=== PATIENT | male | born 1935 | race Asian ===

== ENCOUNTER 2020-07-29 19:34 | Inpatient (IN) | payer MEDICARE, BC ==
[~2020-07-29] VITALS: Ht 165.1 cm; Wt 72.8 kg
[~2020-07-29 19:34] MED LIST: ALFU10TA23 PO; AMLO1TAB15 PO; ASPI81TA50 PO; ATOR20TA PO; MULT-658 PO; SITA1TAB11 PO
[2020-07-29] MEDS ORDERED: 0.9 % SODIUM CHLORIDE 10 ML DISP.SYRIN. IV PRN (20:00)
[2020-07-29] MEDS ORDERED: NORMAL SALINE IV SCH (20:00)
--- NOTE | 2020-07-29 20:20 | RAD ---
AP chest. HISTORY: Altered mental status, fever AP view was taken of the chest. Heart is normal in size. There is a left lower lobe infiltrate sugges ting an acute pneumonia. There is no definite effusion. IMPRESSION: 1. Left lower lobe infiltrate. Electronically signed by: Adalid Barriga MD (07/29/2020 8:18 PM) [facility]
--- NOTE | 2020-07-29 20:23 | RAD ---
CT brain without contrast. HISTORY: Altered mental status, fever CT scan of brain was done without contrast. Sinuses are clear. There is no skull fracture. There is n o intracranial hemorrhage or subdural hematoma. There is no mass or shift of the midline. Ventricles are normal in size. There is mild decreased density in the periventricular white matter from microvas cular changes. An acute CVA is not identified. IMPRESSION: 1. No intracranial hemorrhage or acute finding noted intracranially. PQRS Compliance Statement: One or more of the following individualized dose reduction techniques were utilized for this examinat ion: 1. Automated exposure control 2. Adjustment of the mA and/or kV according to patient size 3. Use of iterative reconstruction technique Electronically signed by: Adalid Barriga MD (07/29/2020 8:20 PM) [facility]
[2020-07-29] MEDS ORDERED: cefTRIAXone SODIUM 1 GM VIAL ONE (20:24)
[2020-07-29] MEDS ORDERED: IV NORMAL SALINE 50ML 50 ML ONE (20:24)
--- NOTE | 2020-07-29 20:33 | EKG ---
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
[2020-07-29 21:00] LABS: CALCIUM 8.9 mg/dL (8.5-10.1); CREATININE 1.3 mg/dL (0.7-1.3); GFR 52.7; POTASSIUM 4.1 mmol/L (3.5-5.1)
[2020-07-29 21:10] LABS: BASO % 0 % (0-3); EOS # 0.1 x10^3/uL (0.0-0.7); EOS % 1 % (0-3); HEMATOCRIT 37.2 % (39.0-53.0); HEMOGLOBIN 12.7 g/dL (13.0-17.5); LYMPH # 0.6 x10^3/uL (1.0-4.8); LYMPH % 7 % (24-48); MEAN CORPUSCULAR HEMOGLOBIN 32 pg (25-35); MEAN CORPUSCULAR HGB CONC 34 g/dL (31-37); MEAN CORPUSCULAR VOLUME 95 fL (79-100); MONO # 0.4 x10^3/uL (0.0-1.1); MONO % 5 % (0-9); NEUT # 6.8 x10^3uL (1.8-7.7); NEUT % 87 % (31-73); PLATELET COUNT 152 x10^3/uL (140-400); RED CELL DISTRIBUTION WIDTH 12.9 % (11.5-14.5); WHITE BLOOD COUNT 7.9 x10^3/uL (4.0-11.0)
--- NOTE | 2020-07-29 21:44 | PHYS DOC ---
Past History Past Medical History: Diabetes, GI Bleed, High Cholesterol, Hypertension, Prostatitis Past Surgical History: Other Alcohol Use: Occasionally Drug Use: None Adult General Chief Complaint Chief Complaint: ALTERED MENTAL STATUS HPI HPI Patient is a 84-year-old male who presents via POV for confusion. 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 She reports patient has had approximately 12 hours of cough with further development of body aches and appears delirious per . Patient has had no known sick contacts, no recent travel, no changes in home medication. Patient did have fever of 104 this morning that was treated appropriately with Tylenol with full resolution. concerned that patient is possibly septic and this happened to him in the past with a UTI prompting her to come in with him for evaluation. Patient has past medical history of A. fib, type 2 diabetes, hypertension and hypercholesterol. He uses alcohol occasionally but does not smoke or do other drugs. Patient had second Covid vaccination last month, no o ther concerning ingestions, exposures. Admits fever, chills, and dry nonproductive cough. No vision changes, chest pain, shortness of breath, abdominal pain, dysuria, neurologic deficits Review of Systems Review of Systems Fourteen body systems of review of systems have been reviewed. See HPI for pertinent positives and negative responses, other umana all other systems are negative, non-pertinent or non-contributory Current Medications Current Medications Current Medications Medications (Trade) Dose Ordered Sig/Alonzo Start Time Stop Time Status Last Admin Dose Admin Ceftriaxone Sodium 1 gm/ Sodium Chloride 50 ml @ 100 mls/hr 1X ONCE 07/29/20 20:00 07/29/20 20:29 DC 07/29/20 20:00 100 MLS/HR Ceftriaxone Sodium (Rocephin) 1 gm STK-MED ONCE 07/29/20 20:24 07/29/20 20:24 DC Sodium Chloride 50 ml @ As Directed STK-MED ONCE 07/29/20 20:24 07/29/20 20:24 DC Sodium Chloride (Normal Saline Flush) 10 ml QSHIFT PRN 07/29/20 20:00 Allergies Allergies Allergies Coded Allergies Type Severity Reaction Last Updated Verified No Known Drug Allergies 04/05/15 No Physical Exam Physical Exam Constitutional: Well developed, well nourished, no acute distress, non-toxic ap pearance. HENT: Normocephalic, atraumatic, bilateral external ears normal, oropharynx moist, no oral exudates, nose normal. Eyes: PERRLA, EOMI, conjunctiva normal, no discharge. Neck: Normal range of motion, no tenderness, supple, no stridor. Cardiovascular: Heart rate regular, sinus rhythm, no murmurs rubs or gallops Lungs & Thorax: Crackles present in left lower lobe without obvious respiratory distress, increased work of breathing or accessory muscle use Abdomen: Bowel sounds normal, soft, no tenderness, no masses, no pulsatile masses. Nonsurgical abdomen, no peritoneal signs Skin: Warm, dry, no erythema, no rash. Back: No tenderness, no CVA tenderness. Extremities: No tenderness, no cyanosis, no clubbing, ROM intact, no edema. Neurologic: Alert and oriented to person and place only, grossly normal motor & sensory function, no focal deficits noted. Psychologic: Affect normal, judgement normal, mood normal. Current Patient Data Vital Signs Vital Signs Date Time Temp Pulse Resp B/P (MAP) Pulse Ox O2 Delivery O2 Flow Rate FiO2 07/29/20 19:41 102.0 100 16 145/75 (98) 92 Room Air Lab Results Laboratory Tests Test 07/29/20 20:17 White Blood Count 7.9 x10^3/uL (4.0-11.0) Red Blood Count 3.90 x10^6/uL (4.30-5.70) L Hemoglobin 12.7 g/dL (13.0-17.5) L Hematocrit 37.2 % (39.0-53.0) L Mean Corpuscular Volume 95 fL (79-100) Mean Corpuscular Hemoglobin 32 pg (25-35) Mean Corpuscular Hemoglobin Concent 34 g/dL (31-37) Red Cell Distribution Width 12.9 % (11.5-14.5) Platelet Count 152 x10^3/uL (140-400) Neutrophils (%) (Auto) 87 % (31-73) H Lymphocytes (%) (Auto) 7 % (24-48) L Monocytes (%) (Auto) 5 % (0-9) Eosinophils (%) (Auto) 1 % (0-3) Basophils (%) (Auto) 0 % (0-3) Neutrophils # (Auto) 6.8 x10^3uL (1.8-7.7) Lymphocytes # (Auto) 0.6 x10^3/uL (1.0-4.8) L Monocytes # (Auto) 0.4 x10^3/uL (0.0-1.1) Eosinophils # (Auto) 0.1 x10^3/uL (0.0-0.7) Basophils # (Auto) 0.0 x10^3/uL (0.0-0.2) Sodium Level 139 mmol/L (136-145) Potassium Level 4.1 mmol/L (3.5-5.1) Chloride Level 103 mmol/L (98-107) Carbon Dioxide Level 23 mmol/L (21-32) Anion Gap 13 (6-14) Blood Urea Nitrogen 13 mg/dL (8-26) Creatinine 1.3 mg/dL (0.7-1.3) Estimated GFR (Cockcroft-Gault) 52.7 Glucose Level 189 mg/dL (70-99) H Lactic Acid Level 2.7 mmol/L (0.4-2.0) H Calcium Level 8.9 mg/dL (8.5-10.1) Troponin I Quantitative 0.054 ng/mL (0-0.055) EKG EKG EKG ordered and interpreted by myself at 2030 hrs. as sinus rhythm at 95 bpm, prolonged NM at 204 otherwise unremarkable intervals, no axis deviation, no acute ischemic findings, no STEMI Radiology/Procedures Radiology/Procedures PROCEDURE: PORTABLE CHEST 1V AP chest. HISTORY: Altered mental status, fever AP view was taken of the chest. Heart is normal in size. There is a left lower lobe infiltrate suggesting an acute pneumonia. There is no definite effusion. IMPRESSION: 1. Left lower lobe infiltrate. Electronically signed by: Adalid Barriga MD (07/29/2020 8:18 PM) [facility] ////////////////////////// PROCEDURE: CT HEAD WO CONTRAST CT brain without contrast. HISTORY: Altered mental status, fever CT scan of brain was done without contrast. Sinuses are clear. There is no skull fracture. There is no intracranial hemorrhage or subdural hematoma. There is no mass or shift of the midline. Ventricles are normal in size. There is mild decreased density in the periventricular white matter from microvascular changes. An acute CVA is not identified. IMPRESSION: 1. No intracranial hemorrhage or acute finding noted intracranially. Heart Score C/O Chest Pain: No HEART Score for Chest Pain: HEART Score for Chest Pain Response (Comments) Value History Slighlty/Non-Suspicious 0 ECG Normal 0 Age > 65 2 Risk Factors >3 Risk Factors or Hx CAD 2 Troponin < Normal Limit 0 Total 4 Risk Factors: Risk Factors: DM, Current or recent (<one month) smoker, HTN, HLP, family history of CAD, obesity. Risk Scores: Risk Factors: DM, Current or recent (<one month) smoker, HTN, HLP, family history of CAD, obesity. Course & Med Decision Making Course & Med Decision Making Febrile and tachycardic patient resenting with history concerning for respiratory pathology and delirium. Physical exam grossly nonconcerning for any emergent/surgical issues. Comprehensive work-up concerning for left lower lobe pneumonia Curb 65 2 indicating 6.8% 30-day mortality. Given recent delirious spells, I recommended admission to hospital. Patient initially did not want this but after discussing case with who agreed need for admission, patient was agreeable Sepsis quality measures met. Patient started on Rocephin and azithromycin for community-acquired pneumonia coverage. Hospitalist, Dr. Sargent contacted and case discussed, he agreed need for admission for continued inpatient medical management Critical Care Time This patient required critical care. Due to the fact that the patient required a significant amount of one on one physician - patient contact time, ordering and review of studies, arranging urgent treatment with development of a management plan, evaluation of patients response to treatment with frequent reassessments, and discussions with other providers this patient required 35 minutes of critica l care time. Critical care time was indicated due to the inherent instability and/or potential for instability in this patient. The critical care time that is allocated to this patient is above and beyond any time spent on any other billable procedures performed on this patient. Dragon Disclaimer Dragon Disclaimer This electronic medical record was generated, in whole or in part, using a voice recognition dictation system. Departure Departure: Impression: Primary Impression: LLL pneumonia Additional Impression: Sepsis Disposition: 09 ADMITTED INPT THIS HOSP Admitting Physician: Misti Sargent Condition: STABLE Referrals: RACHAEL TILLEY (PCP) Problem Qualifiers LEO GIBBS DO Jul 29, 2020 21:44
[2020-07-29] MEDS ORDERED: ACETAMINOPHEN 325 MG TABLET PO PRN (21:45)
[2020-07-29] MEDS ORDERED: AZITHROMYCIN 500 MG in IV NORMAL SALINE 250ML 250 ML IV ONE (22:00)
[2020-07-29] MEDS ORDERED: AZITHROMYCIN 500 MG VIAL. IV ONE (22:23)
[2020-07-29] MEDS ORDERED: IV NORMAL SALINE 250ML 250 ML ONE (22:23)
[2020-07-29 22:33] LABS: CLARITY,URINE CLEAR; COLOR,URINE YELLOW; GLUCOSE,URINE NEG (NEG)
[2020-07-29 22:34] LABS: BACTERIA,URINE 0 /HPF (0-FEW); BILIRUBIN,URINE NEG (NEG); NITRITE,URINE NEG (NEG); RBC,URINE 0 /HPF (0-2); UROBILINOGEN,URINE 0.2 mg/dL (0.2 mg/dL); WBC,URINE 0 /HPF (0-4)
[2020-07-29 23:01] VITALS: BP 128/62
[2020-07-30] MEDS ORDERED: ALFU10TA4 PO (00:55)
[2020-07-30] MEDS ORDERED: SITA1TBM4 PO (00:55)
[2020-07-30] MEDS ORDERED: OMEG-33 PO (00:55)
[2020-07-30] MEDS ORDERED: AMLO-309 PO (00:55)
[2020-07-30] MEDS ORDERED: ATOR40TA59 PO (00:55)
[2020-07-30] MEDS ORDERED: ASPI-889 PO (00:55)
[2020-07-30] MEDS ORDERED: METO25TA4 PO (00:55)
[2020-07-30] MEDS: IV NORMAL SALINE 1,000ML 1,000 ML IV SCH ×3 (01:32→21:00)
[2020-07-30 05:17] VITALS: BP 119/60
[2020-07-30 11:20] VITALS: BP 126/62
[2020-07-30] MEDS: LACTOBACILLUS RHAMNOSUS GG 1 CAPSULE. PO SCH ×2 (11:59→21:35)
[2020-07-30] MEDS: OMEGA-3 FATTY ACIDS/FISH OIL 1,000 MG CAPSULE. PO SCH (11:59)
[2020-07-30] MEDS: METOPROLOL TART IMMED RELEASE 25 MG TABLET. PO SCH ×2 (11:59→21:35)
[2020-07-30] MEDS: LOSARTAN 50 MG TABLET. PO SCH (12:00)
[2020-07-30] MEDS: ATORVASTATIN CALCIUM 20 MG TABLET PO SCH (12:00)
[2020-07-30] MEDS: LINAGLIPTIN 5 MG TABLET PO SCH (12:00)
[2020-07-30] MEDS: amLODIPine BESYLATE 5 MG TABLET PO SCH (12:01)
--- NOTE | 2020-07-30 12:44 | PN ---
DATE: 07/30/2020 SUBJECTIVE: The patient was admitted yesterday with fever, cough mostly dry, left side chest discomfort. He was diagnosed with pneumonia, was started on IV Rocephin and Zithromax. He did actually very well. When I saw him this morning, he was resting, almost flat in bed, in no apparent distress, continued to have some cough, which is mostly dry with scanty whitish sputum and some discomfort in the left side, did complain of some shortness of breath, but denied any orthopnea or paroxysmal nocturnal dyspnea. Denied any chills, rigors or fever. OBJECTIVE: GENERAL: When I examined him this morning, he looked well and was clearly in no apparent respiratory distress. No pallor, jaundice, cyanosis or thyromegaly. No jugular venous distention. No lower limb edema. VITAL SIGNS: His heart rate was 71, blood pressure was 119/60, temperature was 98.2, respiratory rate was 16, and oxygen saturation was 93% on room air. HEAD, EYES, EARS, NOSE AND THROAT: Showed normocephalic and atraumatic. NECK: Supple. HEART: Showed normal first and second heart sounds. No gallop or murmur. CHEST: Showed central trachea, equal bilateral expansion, air entry, vesicular breath sounds with crepitation mostly in the left side posteriorly. ABDOMEN: Distended, soft, nontender. NEUROLOGIC: He was grossly intact. His intake and output are incompletely recorded. His lactic acid is down to 2.1. His troponin is trending down. ASSESSMENT: 1. Community-acquired pneumonia. 2. Continue with IV Zithromax and Rocephin. I did reconcile all his medication. We will continue to monitor him closely and decide the further management accordingly. ADILENE MCLAUGHLIN MD DR: SPEEDY/clarke JOB#: [id number] / [id number]
--- NOTE | 2020-07-30 13:59 | HP ---
ADMIT DATE: 07/30/2020 HISTORY OF PRESENT ILLNESS: The patient is an 84-year-old [place] patient who was brought to the Emergency Room by privately owned vehicle for worsening confusion. 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 She reported the patient had approximately 12 hours of cough with further development of body aches and appears delirious ____ his . The patient has had no known sick contact, no recent travel, no change in home medication, did have fever up to 104 the morning of admission, was treated appropriately with Tylenol with full resolution. His concerned that the patient is possibly septic and this happens to him in the past with UTI, prompting her to come in with him for evaluation. He apparently is known to have multiple medical problems. He had had a second COVID vaccination last month. No other concerning ingestion exposures. The patient was admitted to fever, chills and dry nonproductive cough; however, he denied any chest pain or shortness of breath. He was extensively evaluated in the Emergency Room and his white cell count is actually normal. His chemistry was also unremarkable. His lactic acid was slightly high at 2.7 and his troponin was slightly elevated. His chest x-ray showed that there is left lower lobe infiltrate suggesting an acute pneumonia. There is no definite effusion. The patient was admitted with community-acquired pneumonia, was started on Rocephin and Zithromax and continued on his other medications. PAST MEDICAL HISTORY: Significant for hypertension, hyperlipidemia, type 2 diabetes mellitus, benign prostatic hypertrophy, atrial fibrillation and bleeding gastric ulcer. PAST SURGICAL HISTORY: Significant for transurethral resection of the prostate, has had bilateral cataract extraction and endoscopy. ALLERGIES: He has no known drug allergies. MEDICATIONS: He is currently on following medications: He is on Alfuzosin 10 mg extended release tablet once a day, atorvastatin calcium 40 mg at bedtime, omega-3 fatty acid 1 capsule daily, metoprolol tartrate 25 mg p.o. b.i.d., amlodipine/valsartan 5/320 mg once a day, aspirin 81 mg daily, sitagliptin phosphate/metformin (Janumet) mg twice a day and Janumet XR daily, Centrum Silver 1 tablet once a day. FAMILY HISTORY: He has 6 brothers and 4 sisters, all . He is the youngest of his siblings. His father at the age of 65 because of lung problems and mother at age of 85. SOCIAL HISTORY: He is , has a son and daughter. He never smoked. Drinks alcohol occasionally, but does not use any drugs. 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 REVIEW OF SYSTEMS: As per history of present illness. PHYSICAL EXAMINATION: GENERAL: On arrival to the Emergency Room, the patient looked somewhat pale, but no jaundice, cyanosis or thyromegaly. No jugular venous distension. No limb edema. VITAL SIGNS: Her heart rate was 100, blood pressure was 145/75, temperature was 102, respiratory rate was 16, and oxygen saturation was 92%. HEAD, EYES, EARS, NOSE AND THROAT: Normocephalic and atraumatic. NECK: Supple. HEART: Showed normal first and second heart sounds. No gallop or murmur. CHEST: Shows central trachea, equal bilateral chest expansion, air entry, vesicular sounds with crepitation mostly in the left side posteriorly. I could not appreciate any rhonchi. ABDOMEN: Distended, soft, nontender. NEUROLOGIC: He is awake, alert, responding appropriately. All cranial nerves intact. EXTREMITIES: He moves extremities without difficulty. LABORATORY DATA: His lab work on admission showed a white cell count 7900, hemoglobin 13, hematocrit 37, MCV 95, and platelet count of 153,000. His chemistry showed a serum sodium 139, potassium 4.1, chloride 103, bicarbonate 23, anion gap of 13, BUN 13, creatinine 1.3, estimated GFR was 52 mL per minute. His glucose 189, calcium was 8.9. His lactic acid was slightly elevated at 2.7 and troponin I was 0.054. Urinalysis was essentially unremarkable and was negative for nitrite, leukocyte esterase. There are no rbc's, no wbc's, and no bacteria. His chest x-ray showed left lower lobe infiltrate and a CT scan of the head without contrast showed sinuses are clear. There is no skull fracture. There is no intracranial hemorrhage, no subdural hematoma. There is no mass or shift of midline, ventricles are normal in size. There is mild decreased density in the periventricular white matter from microvascular changes and acute CVA is not identified. ASSESSMENT AND PLAN: The patient was admitted with fever, cough and confusion, diagnosed with community-acquired pneumonia. He was started on Rocephin and Zithromax. We will continue all his medication and follow him closely and decide on further management accordingly. ADILENE MCLAUGHLIN MD DR: SPEEDY/clarke JOB#: [id number] / [id number]
[2020-07-30 15:51] VITALS: BP 121/58
--- NOTE | 2020-07-30 17:17 | PDOC2 ---
CONSULT DOS: DATE: 07/30/20 TIME: 17:10 Reason for Consult: Slight troponin elevation Referring Physician: Dr. Sargent Chief Complaint Altered mental status Source: Chart review, Patient Problem List Problems Medical Problems: (1) LLL pneumonia Status: Acute (2) Sepsis Status: Acute History of Present Illness 84-year-old male was brought to ED by family for mental status changes and was diagnosed with pneumonia. His troponin level was slightly elevated prompting cardiology consultation. He has history of paroxysmal atrial fibrillation and sees a java developer consultant with [facility] every year. He denied any chest pain, orthopnea/PND, palpitations or syncope. Past Medical History Paroxysmal atrial fibrillation Hypertension Hyperlipidemia Diabetes mellitus type 2 Benign prostatic hypertrophy Peptic ulcer disease Past Surgical History TURP Bilateral cataract surgery Family History Negative for premature coronary disease Social History Patient admitted to occasional alcohol intake but denied any smoking or drug abuse. 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 Current Medications Current Medications Sodium Chloride (Normal Saline Flush) 10 ml QSHIFT PRN IV AFTER MEDS AND BLOOD DRAWS; Start 07/29/20 at 20:00 Sodium Chloride 1,860 ml @ 1,860 mls/hr Q1H IV Last administered on 07/29/20at 20:00; Start 07/29/20 at 20:00; Stop 07/30/20 at 07:10; Status DC Ceftriaxone Sodium 1 gm/ Sodium Chloride 50 ml @ 100 mls/hr 1X ONCE IV Last administered on 07/29/20at 20:00; Start 07/29/20 at 20:00; Stop 07/29/20 at 20:29; Status DC Sodium Chloride 50 ml @ As Directed STK-MED ONCE .ROUTE ; Start 07/29/20 at 20:24; Stop 07/29/20 at 20:24; Status DC Ceftriaxone Sodium (Rocephin) 1 gm STK-MED ONCE .ROUTE ; Start 07/29/20 at 20:24; Stop 07/29/20 at 20:24; Status DC Ceftriaxone Sodium 1 gm/ Sodium Chloride 50 ml @ 100 mls/hr 1X ONCE IV ; Start 07/29/20 at 21:45; Stop 07/29/20 at 21:43; Status DC Azithromycin 500 mg/Sodium Chloride 250 ml @ 250 mls/hr 1X ONCE IV Last administered on 07/29/20at 22:00; Start 07/29/20 at 22:00; Stop 07/29/20 at 22:59; Status DC Acetaminophen (Tylenol) 650 mg PRN Q4HRS PRN PO FEVER > 100.3'F; Start 07/29/20 at 21:45; Stop 07/30/20 at 21:44 Sodium Chloride 250 ml @ As Directed STK-MED ONCE .ROUTE ; Start 07/29/20 at 22:23; Stop 07/29/20 at 22:23; Status DC Azithromycin (Zithromax) 500 mg STK-MED ONCE IV ; Start 07/29/20 at 22:23; Stop 07/29/20 at 22:23; Status DC Sodium Chloride 1,000 ml @ 100 mls/hr Q10H IV Last administered on 07/30/20at 01:32; Start 07/30/20 at 01:00 Ceftriaxone Sodium 1 gm/ Sodium Chloride 50 ml @ 100 mls/hr Q24H IV ; Start 07/30/20 at 21:00 Azithromycin 500 mg/Sodium Chloride 250 ml @ 250 mls/hr Q24H IV ; Start 07/30/20 at 22:00 Lactobacillus Rhamnosus (Culturelle) 1 cap BID PO Last administered on 07/30at 11:59; Start 07/30/20 at 09:00 Aspirin (Aspirin Enteric Coated) 81 mg DAILY PO ; Start 07/31/20 at 09:00 Metoprolol Tartrate (Lopressor) 25 mg BID PO Last administered on 07/30/20at 11:59; Start 07/30/20 at 11:45 Non-Formulary Medication (Amlodipine/ Valsartan (Amlodipine-Valsartan 5-320 mg)) 1 tab DAILY PO ; Start 07/31/20 at 09:00; Status UNV Atorvastatin Calcium (Lipitor) 40 mg DAILY PO Last administered on 07/30/20at 12:00; Start 07/30/20 at 12:00 Fish Oil (Fish Oil) 1,000 mg DAILY PO Last administered on 07/30/20at 11:59; Start 07/30/20 at 12:00 Non-Formulary Medication (Sitagliptin Phos/Metformin Hcl (Janumet 50-1,000 Mg Tablet)) 1 tab BID PO ; Start 07/30/20 at 21:00; Status UNV Non-Formulary Medication (Sitagliptin Phos/Metformin Hcl (Janumet Xr 50-1,000 Mg Tablet)) 1 tab DAILY PO ; Start 07/31/20 at 09:00; Status UNV Tamsulosin HCl (Flomax) 0.4 mg QHS PO ; Start 07/30/20 at 21:00 Multivitamins/ Calcium (Thera-M Plus) 1 tab DAILY PO ; Start 07/31/20 at 09:00 Linagliptin (Tradjenta) 5 mg DAILY PO ; Start 07/30/20 at 12:00 Losartan Potassium (Cozaar) 100 mg DAILY PO ; Start 07/30/20 at 12:00 Amlodipine Besylate (Norvasc) 5 mg DAILY PO Last administered on 07/30/20at 12:01; Start 07/30/20 at 12:00 Metformin HCl (Glucophage) 1,000 mg BIDWMEALS PO ; Start 07/30/20 at 17:00 Active Scripts Active Reported [place] 3 1,000 Mg Softgel ([place]-3 Fatty Acids/Fish Oil) 1 Each Capsule 1 Each PO DAILY Aspirin Ec (Aspirin) 81 Mg Tablet.dr 81 Mg PO DAILY Janumet Xr 50-1,000 Mg Tablet (Sitagliptin Phos/Metformin Hcl) 1 Each Tbmp.24hr 1 Tab PO DAILY Alfuzosin Hcl 10 Mg Tab.er.24h 1 Tab PO DAILY Amlodipine-Valsartan 5-320 mg (Amlodipine/Valsartan) 1 Each Tablet 1 Tab PO DAILY Atorvastatin Calcium 40 Mg Tablet 1 Tab PO DAILY Metoprolol Tartrate 25 Mg Tablet 1 Tab PO BID Janumet 50-1,000 Mg Tablet (Sitagliptin Phos/Metformin Hcl) 1 Each Tablet 1 Tab PO BID Centrum Silver Tablet (Multivits-Min/Fa/Lycopene/Lut) 1 Each Tablet 1 Each PO Allergies: Coded Allergies: No Known Drug Allergies (Unverified , 04/05/15) PSYCHOLOGICAL ROS: YES: Disorientation Eyes: No: Loss of vision HEENT: No: Epistaxis Respiratory: No: Hemoptysis, Shortness of breath Cardiovascular: No: Chest Pain, Palpitations, Edema Gastrointestinal: No: Vomiting Neurological: No: Seizures Skin: No: Rash General: Alert, No acute distress HEENT: Atraumatic Lungs: Clear to auscultation Heart: Regular rate Abdomen: Soft Extremities: No edema VITALS Vital Signs Date Time Temp Pulse Resp B/P (MAP) Pulse Ox O2 Delivery O2 Flow Rate FiO2 07/30/20 15:51 99.8 76 14 121/58 (79) Room Air 07/30/20 11:20 92 Labs Laboratory Tests Test 07/29/20 20:17 07/29/20 20:49 07/30/20 00:45 07/30/20 04:15 White Blood Count 7.9 x10^3/uL (4.0-11.0) Red Blood Count 3.90 x10^6/uL (4.30-5.70) Hemoglobin 12.7 g/dL (13.0-17.5) Hematocrit 37.2 % (39.0-53.0) Mean Corpuscular Volume 95 fL (79-100) Mean Corpuscular Hemoglobin 32 pg (25-35) Mean Corpuscular Hemoglobin Concent 34 g/dL (31-37) Red Cell Distribution Width 12.9 % (11.5-14.5) Platelet Count 152 x10^3/uL (140-400) Neutrophils (%) (Auto) 87 % (31-73) Lymphocytes (%) (Auto) 7 % (24-48) Monocytes (%) (Auto) 5 % (0-9) Eosinophils (%) (Auto) 1 % (0-3) Basophils (%) (Auto) 0 % (0-3) Neutrophils # (Auto) 6.8 x10^3uL (1.8-7.7) Lymphocytes # (Auto) 0.6 x10^3/uL (1.0-4.8) Monocytes # (Auto) 0.4 x10^3/uL (0.0-1.1) Eosinophils # (Auto) 0.1 x10^3/uL (0.0-0.7) Basophils # (Auto) 0.0 x10^3/uL (0.0-0.2) Sodium Level 139 mmol/L (136-145) Potassium Level 4.1 mmol/L (3.5-5.1) Chloride Level 103 mmol/L (98-107) Carbon Dioxide Level 23 mmol/L (21-32) Anion Gap 13 (6-14) Blood Urea Nitrogen 13 mg/dL (8-26) Creatinine 1.3 mg/dL (0.7-1.3) Estimated GFR (Cockcroft-Gault) 52.7 Glucose Level 189 mg/dL (70-99) Lactic Acid Level 2.7 mmol/L (0.4-2.0) 2.3 mmol/L (0.4-2.0) 2.1 mmol/L (0.4-2.0) Calcium Level 8.9 mg/dL (8.5-10.1) Troponin I Quantitative 0.054 ng/mL (0-0.055) 0.121 ng/mL (0-0.055) 0.106 ng/mL (0-0.055) Urine Collection Type Unknown Urine Color Yellow Urine Clarity Clear Urine pH 7.5 Urine Specific [place] 1.015 Urine Protein 30 mg/dl (NEG-TRACE) Urine Glucose (UA) Neg mg/dL (NEG) Urine Ketones (Stick) 40 mg/dL (NEG) Urine Blood Trace (NEG) Urine Nitrite Neg (NEG) Urine Bilirubin Neg (NEG) Urine Urobilinogen Dipstick 0.2 mg/dL (0.2 mg/dL) Urine Leukocyte Esterase Neg (NEG) Urine RBC 0 /HPF (0-2) Urine WBC 0 /HPF (0-4) Urine Squamous Epithelial Cells None /LPF Urine Bacteria 0 /HPF (0-FEW) Test 07/30/20 07:45 Glucose (Fingerstick) 127 mg/dL (70-99) Assessment/Plan 1. Community-acquired pneumonia: Continue intravenous antibiotics per IM. 2. Slight troponin elevation, most probably demand ischemia. He denied any chest pain. Plan for 2D echo and ischemic evaluation as an outpatient, possibly with primary java developer consultant. 3. Paroxysmal atrial fibrillation: Presently in sinus rhythm. Telemetry showed 1 brief episode of atrial tachycardia. Continue metoprolol. He is currently not on any long-term anticoagulation. Follow-up with primary java developer consultant at upon discharge. 4. Hypertension: Well-controlled 5. Hyperlipidemia: Continue statin therapy 6. Diabetes mellitus type 2: Treat per IM Thank you for your consultation LIMA GRIFFIN MD Jul 30, 2020 17:17
[2020-07-30] MEDS: metFORMIN 500 MG TABLET PO SCH (17:38)
[2020-07-30 19:41] VITALS: BP 117/57
[2020-07-30] MEDS ORDERED: NON FORMULARY ITEM (Sitagliptin Phos/Metformin Hcl (Janumet 50-1,000 Mg Tablet) 1 TAB) PO SCH (21:00)
[2020-07-30] MEDS: TAMSULOSIN 0.4 MG CAP.ER.24H. PO SCH (21:35)
[2020-07-30 22:52] VITALS: BP 122/55
[2020-07-30] MEDS: AZITHROMYCIN 500 MG in IV NORMAL SALINE 250ML 250 ML IV SCH (23:16)
[2020-07-31 05:42] VITALS: BP 120/65
[2020-07-31 07:25] LABS: HEMOGLOBIN 10.7 g/dL (13.0-17.5); RED BLOOD COUNT 3.32 x10^6/uL (4.30-5.70); RED CELL DISTRIBUTION WIDTH 13.4 % (11.5-14.5); WHITE BLOOD COUNT 9.6 x10^3/uL (4.0-11.0)
[2020-07-31 07:31] LABS: ALBUMIN 2.7 g/dL (3.4-5.0); ALBUMIN/GLOBULIN RATIO 0.8 (1.0-1.7); CALCIUM 7.9 mg/dL (8.5-10.1); GFR 71.4; POTASSIUM 3.8 mmol/L (3.5-5.1); TOTAL BILIRUBIN 0.4 mg/dL (0.2-1.0); TOTAL PROTEIN 6.2 g/dL (6.4-8.2)
[2020-07-31] MEDS: LACTOBACILLUS RHAMNOSUS GG 1 CAPSULE. PO SCH ×2 (08:48→20:46)
[2020-07-31] MEDS: LOSARTAN 50 MG TABLET. PO SCH (08:49)
[2020-07-31] MEDS: OMEGA-3 FATTY ACIDS/FISH OIL 1,000 MG CAPSULE. PO SCH (08:49)
[2020-07-31] MEDS: METOPROLOL TART IMMED RELEASE 25 MG TABLET. PO SCH ×2 (08:50→20:46)
[2020-07-31] MEDS: MULTIVITAMIN with MINERAL TABLET. PO SCH (08:50)
[2020-07-31] MEDS: metFORMIN 500 MG TABLET PO SCH ×2 (08:50→18:11)
[2020-07-31] MEDS: ATORVASTATIN CALCIUM 20 MG TABLET PO SCH (08:51)
[2020-07-31] MEDS: amLODIPine BESYLATE 5 MG TABLET PO SCH (08:53)
[2020-07-31] MEDS: LINAGLIPTIN 5 MG TABLET PO SCH (08:53)
[2020-07-31] MEDS: ASPIRIN ENTERIC COATED 81 MG TABLET.DR. PO SCH (08:56)
[2020-07-31] MEDS ORDERED: [UNRECOGNIZED DRUG - OTHER] PO SCH (09:00)
[2020-07-31] MEDS ORDERED: VALSARTAN PO SCH (09:00)
[2020-07-31] MEDS ORDERED: AMLODIPINE PO SCH (09:00)
[2020-07-31] MEDS ORDERED: METFORMIN HCL PO SCH (09:00)
[2020-07-31] MEDS ORDERED: SITAGLIPTIN PHOS PO SCH (09:00)
[2020-07-31 10:35] VITALS: BP 136/68
[2020-07-31 10:39] VITALS: BP 136/68
--- NOTE | 2020-07-31 11:02 | PN ---
DATE: 07/31/2020 SUBJECTIVE: The patient is resting, slightly propped up in bed, in no apparent distress. On questioning him, he denied any complaint. The discomfort on the left side is much improved, has been afebrile. Denied any shortness of breath. PHYSICAL EXAMINATION: GENERAL: When I examined him, he looked well and was clearly in no apparent respiratory distress. He was pale, no jaundice or cyanosis. No lymphadenopathy, no thyromegaly. No jugular venous distention. No lower limb edema. VITAL SIGNS: His heart rate was 64, blood pressure was 120/65, temperature was 98.5, respiratory rate was 18 and oxygen saturation was 93%. HEAD, EYES, EARS, NOSE, AND THROAT: Showed normocephalic, atraumatic. NECK: Supple. HEART: Showed normal first and second heart sounds. No gallop, rub or murmur. CHEST: Showed central trachea, equal bilateral expansion, air entry, vesicular breath sounds with crepitation mostly in the left side posteriorly. ABDOMEN: Distended, soft, nontender. NEUROLOGIC: He was grossly intact. LABORATORY DATA: As of this morning, his white cell count was 9600, hemoglobin 11, hematocrit 32, MCV 97, and platelet count of 126,000. Serum sodium 140, potassium 3.8, chloride 107, bicarbonate 22, anion gap of 11, BUN 13, creatinine 1, estimated GFR was 71 mL per minute. His glucose was 111, calcium was 7.9. Total bilirubin, AST, ALT, alkaline phosphatase were normal. Total protein 6.2, albumin was 2.7. ASSESSMENT: 1. Community-acquired pneumonia, for which he is now on Rocephin and Zithromax. 2. Hypertension. 3. Hyperlipidemia. 4. Type 2 diabetes mellitus. 5. Benign prostatic hypertrophy. 6. Atrial fibrillation. 7. He has a history of bleeding gastric ulcer. He has a slightly elevated troponin, felt to be demand ischemia. He denied any chest pain and arrangement was made for him to be seen by his primary refractory grinder operator for 2D echo and ischemic evaluation. He will be discharged tomorrow. ADILENE MCLAUGHLIN MD DR: SPEEDY/clarke JOB#: [id number] / [id number]
[2020-07-31] MEDS: IV NORMAL SALINE 1,000ML 1,000 ML IV SCH ×2 (13:23→18:18)
[2020-07-31 14:58] VITALS: BP 138/68
[2020-07-31 19:19] VITALS: BP 150/73
[2020-07-31] MEDS: TAMSULOSIN 0.4 MG CAP.ER.24H. PO SCH (20:46)
[2020-07-31] MEDS: AZITHROMYCIN 500 MG in IV NORMAL SALINE 250ML 250 ML IV SCH (22:11)
[2020-07-31 22:59] VITALS: BP 139/72
[2020-08-01] MEDS: IV NORMAL SALINE 1,000ML 1,000 ML IV SCH (03:00)
[2020-08-01 05:32] VITALS: BP 139/68
[2020-08-01] MEDS: MULTIVITAMIN with MINERAL TABLET. PO SCH (07:40)
[2020-08-01] MEDS: OMEGA-3 FATTY ACIDS/FISH OIL 1,000 MG CAPSULE. PO SCH (07:40)
[2020-08-01] MEDS: LACTOBACILLUS RHAMNOSUS GG 1 CAPSULE. PO SCH (07:40)
[2020-08-01] MEDS: metFORMIN 500 MG TABLET PO SCH (07:40)
[2020-08-01] MEDS: ASPIRIN ENTERIC COATED 81 MG TABLET.DR. PO SCH (07:41)
[2020-08-01] MEDS: amLODIPine BESYLATE 5 MG TABLET PO SCH (07:41)
[2020-08-01] MEDS: METOPROLOL TART IMMED RELEASE 25 MG TABLET. PO SCH (07:41)
[2020-08-01 07:42] VITALS: BP 139/68
[2020-08-01] MEDS: LOSARTAN 50 MG TABLET. PO SCH (07:42)
[2020-08-01] MEDS: ATORVASTATIN CALCIUM 20 MG TABLET PO SCH (07:42)
[2020-08-01] MEDS: LINAGLIPTIN 5 MG TABLET PO SCH (07:42)
--- NOTE | 2020-08-01 07:46 | PDOC ---
CARDIO Progress Notes Date & Time Date of Service DATE: 08/01/20 TIME: 07:39 Time of Evaluation 07:39 Subjective Notes No complaints, feeling well. Ready to go home Vitals Vitals Vital Signs Date Time Temp Pulse Resp B/P (MAP) Pulse Ox O2 Delivery O2 Flow Rate FiO2 08/01/20 05:32 98.5 71 20 139/68 (91) 94 Room Air Weight Weight [ ] Input and Output I.O. Intake and Output 08/01/20 07:00 Intake Total 1500 ml Balance 1500 ml Intake Oral 1200 ml IV Total 300 ml # Voids 5 Laboratory Labs Laboratory Tests Test 07/30/20 07:45 07/30/20 12:05 07/30/20 20:27 07/31/20 06:45 Glucose (Fingerstick) 127 mg/dL (70-99) 179 mg/dL (70-99) Coronavirus (PCR) Not detected (Not Detected) SARS-CoV-2 Comment Performed (.) White Blood Count 9.6 x10^3/uL (4.0-11.0) Red Blood Count 3.32 x10^6/uL (4.30-5.70) Hemoglobin 10.7 g/dL (13.0-17.5) Hematocrit 32.0 % (39.0-53.0) Mean Corpuscular Volume 97 fL (79-100) Mean Corpuscular Hemoglobin 32 pg (25-35) Mean Corpuscular Hemoglobin Concent 34 g/dL (31-37) Red Cell Distribution Width 13.4 % (11.5-14.5) Platelet Count 126 x10^3/uL (140-400) Sodium Level 140 mmol/L (136-145) Potassium Level 3.8 mmol/L (3.5-5.1) Chloride Level 107 mmol/L (98-107) Carbon Dioxide Level 22 mmol/L (21-32) Anion Gap 11 (6-14) Blood Urea Nitrogen 13 mg/dL (8-26) Creatinine 1.0 mg/dL (0.7-1.3) Estimated GFR (Cockcroft-Gault) 71.4 BUN/Creatinine Ratio 13 (6-20) Glucose Level 111 mg/dL (70-99) Calcium Level 7.9 mg/dL (8.5-10.1) Total Bilirubin 0.4 mg/dL (0.2-1.0) Aspartate Amino Transf (AST/SGOT) 23 U/L (15-37) Alanine Aminotransferase (ALT/SGPT) 20 U/L (16-63) Alkaline Phosphatase 58 U/L (46-116) Total Protein 6.2 g/dL (6.4-8.2) Albumin 2.7 g/dL (3.4-5.0) Albumin/Globulin Ratio 0.8 (1.0-1.7) Test 07/31/20 07:25 07/31/20 20:08 Glucose (Fingerstick) 108 mg/dL (70-99) 170 mg/dL (70-99) Microbiology Micro Microbiology 07/29/20 Blood Culture - Preliminary, Resulted NO GROWTH AFTER 2 DAYS... Physical Exams HEENT: Neck Supple W Full Motion Chest: Symmetric Lungs: Clear to Auscultation Heart: RRR (SR) Abdomen: Soft N/T Extremities: No Edema Neurology: alert, oriented, follow commands Assessment Assessment 1. Community-acquired pneumonia: Continue intravenous antibiotics per IM. 2. Slight troponin elevation; peak 0.1. Most probably type II, demand ischemia. CP free. 3. Paroxysmal AFIB; Presently in sinus rhythm. Telemetry showed 1 brief episode of atrial tachycardia. Continue metoprolol. 4. Hypertension; controlled 5. Hyperlipidemia; statin 6. Diabetes, II 7. Leukocytosis 8. Metabolic encephalopathy; CT head without acute findings. improved Recommendations Echo to assess LV systolic function Continue metoprolol for rate control ASA therapy. He is currently not on any long-term anticoagulation with h/o GIB. Probable outpatient ischemic evaluation Follow-up with primary commercial sales consultant at upon discharge. SUSSY CASTELLANOS APRN Aug 01, 2020 07:46
[2020-08-01] MEDS ORDERED: AZIT250T PO (10:02)
[2020-08-01] MEDS ORDERED: CEFD300C PO (10:02)
--- NOTE | 2020-08-01 11:10 | DS ---
DATE OF DISCHARGE: 08/01/2020 HOSPITAL COURSE: The patient an 84-year-old [place] male patient who was admitted with increasing shortness of breath, cough and left-sided chest discomfort. He was extensively investigated and was found on a chest x-ray has left lower lobe infiltrate. He was started on IV Rocephin and Zithromax and did very well. He has been afebrile over the last 48 hours, has had no further cough. The chest discomfort has largely subsided. He is maintaining his oxygen saturation at 98% on room air and therefore, a decision was made to discharge him home. PHYSICAL EXAMINATION: GENERAL: When I saw him this morning, he looked well and was clearly in no apparent respiratory distress. He is pale, no jaundice, cyanosis, some thyromegaly. No jugular venous distention. No lower limb edema. VITAL SIGNS: His heart rate was 71, blood pressure was 139/68, temperature was 98.5, respiratory rate 20, and oxygen saturation was 97% on room air. HEAD, EYES, EARS, NOSE AND THROAT: Normocephalic, atraumatic. NECK: Supple. HEART: Normal first and second heart sounds. No gallop, rub or murmur. CHEST: Shows central trachea, equal bilateral expansion, air entry, vesicular sounds with crepitation mostly in the left side posteriorly. I could not appreciate any rhonchi. ABDOMEN: Scaphoid, distended, soft, nontender. NEUROLOGIC: He was grossly intact. LABORATORY DATA: Showed a white cell count 9600, hemoglobin 11, hematocrit 32, MCV 97, and platelet count of 126,000. His chemistry showed a serum sodium 140, potassium 3.8, chloride 107, bicarbonate 22, anion gap of 11, BUN of 13, creatinine 1, estimated GFR was 71 mL per minute. His glucose was 111, calcium was 7.9. Total bilirubin, AST, ALT, alkaline phosphatase were normal. Total protein 6.2, albumin 2.7. DISCHARGE MEDICATIONS: He was discharged home to continue on Zithromax 250 mg once a day for 2 more days and cefdinir 300 mg twice a day for 7 more days, alfuzosin 10 mg once a day, amlodipine/valsartan 5/320 one tablet once a day, aspirin 81 mg once a day, atorvastatin 40 mg at bedtime, metoprolol tartrate 25 mg twice a day, multivitamin for Centrum Silver 1 tablet once a day, omega-3 fatty acid 1 tablet daily, sitagliptin/metformin Janumet twice a day and sitagliptin/metformin Janumet one tablet every noon. ASSESSMENT: 1. Community-acquired pneumonia, resolving. The patient will be discharged to continue oral antibiotic. 2. Hypertension. 3. Hyperlipidemia. 4. Type 2 diabetes mellitus. 5. Benign prostatic hypertrophy. 6. Atrial fibrillation. 7. History of bleeding gastric ulcer. 8. Slightly elevated troponin, felt to be most likely due to demand ischemia. ADILENE MCLAUGHLIN MD DR: SPEEDY/clarke JOB#: [id number] / [id number]
== END 2020-08-01 11:29 | disposition home or self-care (01) | DRG 871 ==
LOC: ER 19:34 → 1 SOUTH 21:44
PROVIDERS: ADMIT Internal Medicine; ATTEND Internal Medicine
DX: A41.9 Sepsis, unspecified organism (principal); G93.41 Metabolic encephalopathy; J18.9 Pneumonia, unspecified organism; I24.8 Other forms of acute ischemic heart disease; I47.1 Supraventricular tachycardia; E11.9 Type 2 diabetes mellitus without complications; E78.00 Pure hypercholesterolemia, unspecified; E78.5 Hyperlipidemia, unspecified; I10 Essential (primary) hypertension; I25.10 Atherosclerotic heart disease of native coronary artery without angina pectoris; I48.0 Paroxysmal atrial fibrillation; N40.0 Benign prostatic hyperplasia without lower urinary tract symptoms; Z82.49 Family history of ischemic heart disease and other diseases of the circulatory system; Z87.11 Personal history of peptic ulcer disease; Z87.891 Personal history of nicotine dependence; Z98.41 Cataract extraction status, right eye; Z98.42 Cataract extraction status, left eye; Z20.822 Contact with and (suspected) exposure to COVID-19
CPT/HCPCS: 36415; 70450; 71045; 80048; 80053; 81001; 82947; 83605; 84484; 85025; 85027; 87040; 93005; 96365; 96366; J0456; J0696; J7050; U0003; U0005; 99291-25; J7030